=== PATIENT | female | born 1955 | race Caucasian/White ===

== ENCOUNTER 2021-09-19 11:46 | Emergency (ER) | payer BC, MEDICARE ==
[~2021-09-19] VITALS: Ht 157.5 cm; Wt 67.8 kg
[2021-09-19 13:58] LABS: BASO # 0.1 10^3/uL (0.0-0.2); BASO % 0.6 % (0.0-1.0); EOS # 0.1 10^3/uL (0.0-0.5); EOS % 0.6 % (0.0-3.0); HEMOGLOBIN 15.2 g/dl (12.0-15.5); LYMPH # 2.5 10^3/uL (1.5-5.0); LYMPH % 26.6 % (24.0-44.0); MEAN CORPUSCULAR HEMOGLOBIN 29.6 pg (27.0-33.0); MEAN CORPUSCULAR HGB CONC 33.8 g/dl (32.0-36.5); MEAN CORPUSCULAR VOLUME 87.7 fl (80.0-96.0); MONO # 0.6 10^3/uL (0.0-0.8); MONO % 6.3 % (2.0-8.0); NEUTROPHILS # 6.1 10^3/uL (1.5-8.5); NEUTROPHILS % 65.7 % (36.0-66.0); PLATELET COUNT, AUTOMATED 361 10^3/uL (150-450); RED BLOOD COUNT 5.13 10^6/uL (4.00-5.40); WHITE BLOOD COUNT 9.4 10^3/uL (4.0-10.0)
[2021-09-19] MEDS ORDERED: NS 1,000 ML IV ONE (14:35)
[2021-09-19] MEDS ORDERED: ISOVUE-370 76% 100ML VIAL As Ordered ONE (14:42)
[2021-09-19 15:34] LABS: ALBUMIN 3.8 GM/DL (3.2-5.2); BILIRUBIN,DIRECT 0.1 MG/DL (0.0-0.2); BILIRUBIN,TOTAL 0.5 MG/DL (0.2-1.0); TOTAL PROTEIN 6.8 GM/DL (6.4-8.2)
[2021-09-19] MEDS ORDERED: ASPI81TA26 PO (15:50)
[2021-09-19 16:04] VITALS: BP 136/62
== END 2021-09-19 16:16 | disposition home or self-care (01) ==
LOC: M ED 11:46
DX: M54.50 Low back pain, unspecified (principal); I67.9 Cerebrovascular disease, unspecified; K80.80 Other cholelithiasis without obstruction; K57.90 Diverticulosis of intestine, part unspecified, without perforation or abscess without bleeding; F17.200 Nicotine dependence, unspecified, uncomplicated
CPT/HCPCS: 70450; 74177; 80047; 80076; 81001; 85025; 87086; 96360; 99284; Q9967

== ENCOUNTER 2021-10-15 16:49 | Emergency (ER) | payer MEDICARE ==
[~2021-10-15 16:49] MED LIST: ASPI81TA26 PO
[2021-10-15] MEDS ORDERED: LORazepam 2 MG/ML VIAL IV STA ×2 (17:18→17:22)
[2021-10-15] MEDS ORDERED: NS 1,000 ML IV ONE (17:20)
[2021-10-15 17:42] LABS: BASO # 0.1 10^3/uL (0.0-0.2); BASO % 0.7 % (0.0-1.0); EOS # 0.1 10^3/uL (0.0-0.5); EOS % 1.1 % (0.0-3.0); HEMATOCRIT 40.5 % (36.0-47.0); HEMOGLOBIN 13.9 g/dl (12.0-15.5); LYMPH # 3.6 10^3/uL (1.5-5.0); MEAN CORPUSCULAR HEMOGLOBIN 29.8 pg (27.0-33.0); MEAN CORPUSCULAR HGB CONC 34.3 g/dl (32.0-36.5); MEAN CORPUSCULAR VOLUME 86.7 fl (80.0-96.0); MONO # 0.9 10^3/uL (0.0-0.8); MONO % 7.1 % (2.0-8.0); NEUTROPHILS # 7.7 10^3/uL (1.5-8.5); NEUTROPHILS % 61.7 % (36.0-66.0); PLATELET COUNT, AUTOMATED 335 10^3/uL (150-450); RED BLOOD COUNT 4.67 10^6/uL (4.00-5.40); WHITE BLOOD COUNT 12.5 10^3/uL (4.0-10.0)
[2021-10-15 18:28] LABS: ACETAMINOPHEN LEVEL < 2.0 UG/ML (10.0-30.0); ALBUMIN 3.8 GM/DL (3.2-5.2); ALT/SGPT 34 U/L (12-78); BILIRUBIN,DIRECT < 0.1 MG/DL (0.0-0.2); BILIRUBIN,TOTAL 0.4 MG/DL (0.2-1.0); BLOOD UREA NITROGEN 11 MG/DL (7-18); CARBON DIOXIDE LEVEL 24 MEQ/L (21-32); CHLORIDE LEVEL 101 MEQ/L (98-107); ETHYL ALCOHOL (ETHANOL) < 0.003 % (0.000-0.010); GLOMERULAR FILTRATION RATE > 60.0 (>45); GLUCOSE, FASTING 110 MG/DL (70-100); POTASSIUM SERUM 4.1 MEQ/L (3.5-5.1); SALICYLATE LEVEL 6.1 MG/DL (5.0-30.0); SODIUM LEVEL 135 MEQ/L (136-145)
[2021-10-15] MEDS ORDERED: ATIV1TAB7 PO (19:52)
[2021-10-15 21:00] VITALS: BP 127/63
== END 2021-10-15 21:11 | disposition home or self-care (01) ==
LOC: M ED 16:49
DX: F43.0 Acute stress reaction (principal); R00.0 Tachycardia, unspecified; F17.200 Nicotine dependence, unspecified, uncomplicated
CPT/HCPCS: 70450; 80048; 80076; 80143; 82077; 82550; 84443; 85025; 93005; 93041; 94760; 96374; 99285; J2060

== ENCOUNTER → 2023-05-03 | Outpatient (CLI) | payer MEDICARE ==
[~2023-05-03] MED LIST changes: +ATIV1TAB7 PO; +POLY2.5S OS
[2023-05-03 09:50] LABS: HEMATOCRIT 40.5 % (36.0-47.0); HEMOGLOBIN 13.3 g/dl (12.0-15.5); MEAN CORPUSCULAR HEMOGLOBIN 28.7 pg (27.0-33.0); MEAN CORPUSCULAR HGB CONC 32.8 g/dl (32.0-36.5); MEAN CORPUSCULAR VOLUME 87.3 fl (80.0-96.0); PLATELET COUNT, AUTOMATED 343 10^3/uL (150-450); RED BLOOD COUNT 4.64 10^6/uL (4.00-5.40); WHITE BLOOD COUNT 9.1 10^3/uL (4.0-10.0)
[2023-05-03 10:15] LABS: HEMOGLOBIN A1c 5.1 % (4.0-6.0)
[2023-05-03 10:18] LABS: ALBUMIN 3.8 G/DL (3.2-5.2); ALKALINE PHOSPHATASE 97 U/L (46-116); ALT/SGPT 13 U/L (7.0-40); AST/SGOT 15 U/L (<34); BILIRUBIN,TOTAL 0.7 MG/DL (0.3-1.2); BLOOD UREA NITROGEN 6 MG/DL (9-23); CALCIUM LEVEL 9.6 MG/DL (8.3-10.6); CARBON DIOXIDE LEVEL 28 MMOL/L (20-31); CHLORIDE LEVEL 100 MMOL/L (98-107); CHOLESTEROL LEVEL 251 MG/DL (<200); CHOLESTEROL RISK RATIO 3.43 (<5); CREATININE FOR GFR 0.67 MG/DL (0.55-1.30); GLOMERULAR FILTRATION RATE > 60.0 (>45); GLUCOSE, FASTING 119 MG/DL (74-106); HDL CHOLESTEROL 73.1 MG/DL (>40); LDL CHOLESTEROL 151.7 MG/DL (<100); NON-HDL-C 177.9 MG/DL; POTASSIUM SERUM 4.2 MMOL/L (3.5-5.1); SODIUM LEVEL 136 MMOL/L (136-145); THYROID STIMULATING HORMONE 3.515 uIU/ML (0.55-4.78); TOTAL 25(OH) VITAMIN D 19.4 NG/ML (20.0-100.0); TOTAL PROTEIN 7.1 G/DL (5.7-8.2); TRIGLYCERIDES LEVEL 131 MG/DL (<150)
== END ==
LOC: M LAB 09:10
PROVIDERS: ATTEND Family Medicine
DX: D64.9 Anemia, unspecified (principal); E03.9 Hypothyroidism, unspecified; R53.83 Other fatigue

== ENCOUNTER → 2023-06-25 | Outpatient (CLI) | payer MEDICARE | LOC: M WHC 13:59 | PROVIDERS: ATTEND Family Medicine | DX: Z12.31 Encounter for screening mammogram for malignant neoplasm of breast (principal); N63.21 Unspecified lump in the left breast, upper outer quadrant | CPT/HCPCS: 76642; 77066; G0279 ==

== ENCOUNTER → 2024-01-20 | Outpatient (CLI) | payer MEDICARE | LOC: M WHC 12:01 | PROVIDERS: ATTEND Family Medicine | DX: Z12.31 Encounter for screening mammogram for malignant neoplasm of breast (principal); N63.11 Unspecified lump in the right breast, upper outer quadrant; N63.21 Unspecified lump in the left breast, upper outer quadrant ==